=== PATIENT | female | born 1955 | race Caucasian/White ===

== ENCOUNTER 2024-07-27 06:14 | Day surgery (SDC) | payer MEDICARE, OTHER ==
[2024-07-27] MEDS ORDERED: Sodium Chloride 0.9% 10 ML Syringe FLUSH PRN (06:15)
[2024-07-27] MEDS ORDERED: Propofol 200 MG/20 ML SDV IV ONE (06:15)
[2024-07-27] MEDS: Lactated Ringers 1,000 ML IV SCH (07:01)
[2024-07-27] MEDS: Simethicone Drops 40 MG/0.6 ML 30 ML Bottle ONE (07:40)
== END 2024-07-27 09:40 | disposition home or self-care (01) ==
LOC: FB.SDS 06:14
PROVIDERS: ATTEND Surgery
DX: Z12.11 Encounter for screening for malignant neoplasm of colon (principal); K57.30 Diverticulosis of large intestine without perforation or abscess without bleeding; K62.89 Other specified diseases of anus and rectum; F32.A Depression, unspecified; Z87.891 Personal history of nicotine dependence; Z79.899 Other long term (current) drug therapy
CPT/HCPCS: A9270; G0121; J2704; J7120